=== PATIENT | female | born 1965 ===

== ENCOUNTER 2017-04-16 21:29 | Emergency (ER) | payer MEDICAID ==
[2017-04-16 21:36] VITALS: BP 149/87; PULSE 106; RESP 20; TEMP 97.5; O2SAT 98
--- NOTE | 2017-04-16 21:50 | C.PDOC ---
History Of Present Illness 51 yo female come in for evaluation of Right knee, Right hip and Right lower back pain gradually developed since today Am after sustained mechanical fall at home. Pt sts, slipped and fell down on ceramic floor, landed onto her knees. Pt admits, pain is aching, gradually worse with time and worse with ambulation. Otherwise, pt denies head injury, LOC, syncope, headache, dizziness, visual changes, neck pain, CP, SOB, dyspnea, diaphoresis, palpitation, abd. pain, N/V, saddle anesthesia, incontinence, denies obvious deformity to Right leg, denies weakness, sensory or vascular deficits to B/L LEs. Ambulate to Ed for evaluation , not in any apparent distress. Time Seen by Provider: 04/16/17 21:42 Chief Complaint (Nursing): Back Pain History Per: Patient Past Medical History Reviewed: Historical Data, Nursing Documentation, Vital Signs Vital Signs: Last Vital Signs Temp 97.5 F L 04/16/17 21:34 Pulse 106 H 04/16/17 21:34 Resp 20 04/16/17 21:34 BP 149/87 04/16/17 21:34 Pulse Ox 98 04/16/17 22:06 Family History: States: No Known Family Hx - Social History Hx Tobacco Use: No Hx Alcohol Use: No Hx Substance Use: No Review Of Systems Except As Marked, All Systems Reviewed And Found Negative. Constitutional: Negative for: Fever, Chills Eyes: Negative for: Vision Change ENT: Negative for: Ear Discharge, Nose Discharge Cardiovascular: Negative for: Chest Pain, Palpitations, Orthopnea Respiratory: Negative for: Cough Gastrointestinal: Negative for: Nausea, Vomiting, Abdominal Pain Genitourinary: Negative for: Incontinence Musculoskeletal: Positive for: Back Pain, Leg Pain (right) Skin: Negative for: Bruising Neurological: Negative for: Weakness, Numbness, Altered Mental Status, Dizziness Physical Exam - Physical Exam Appears: Well, Non-toxic, No Acute Distress Skin: Normal Color, Warm, Dry Head: Atraumatic, Normacephalic Eye(s): bilateral: PERRL Ear(s): Bilateral: Normal Nose: No Deformity Oral Mucosa: Moist Throat: No Drooling Neck: No Midline Cervical Tenderness, No Paracervical Tenderness, No Step Off Deformity, Supple Chest: Symmetrical, No Deformity Cardiovascular: Rhythm Regular Respiratory: No Decreased Breath Sounds, No Accessory Muscle Use, No Stridor Gastrointestinal/Abdominal: Soft, No Tenderness Back: No Vertebral Tenderness, Paraspinal Tenderness (Right lumbar, no ecchymoses, no midline tenderness, no palpable defomrity.) Extremity: Normal ROM (RLE), Tenderness (mild over Right patella with punctate echymoses), No Deformity, No Swelling Neurological/Psych: Oriented x3, Normal Speech, Normal Motor, Normal Sensation, Normal Reflexes ED Course And Treatment O2 Sat by Pulse Oximetry: 98 Pulse Ox Interpretation: Normal - Other Rad rIGHT KNEE X-Ray: Interpreted by Me, Viewed By Me Interpretation: (-) ACUTE FX OR DISLOCATION RIGHT HIP/PELVIS X-Ray: Interpreted by Me, Viewed By Me Interpretation: (-) ACUTE FX OR DISLOCATION Progress Note: On re-evaluation, pt is afebrile, hemodynamicaly stable. non- toxic. Ambulatory in ED with stable gait. head: AT/NC. neck: Supple, (-) midline tenderness. Lungs: CTA B/L, BS equal B/L. Abd: benign. Neurologicaly intact. Xray of Right knee, pelvis/Right hip review and appears normal, (-) acute fx or dislocation. Rafael wrap applied to Right knee. Pt has clinical findings c/w Right knee and Right hip contusion, Right back strain s/p mechanical fall. pt advised. ref. to f/u with PMD, Ortho in 2-3 days for re- eval. return to ED if any worsening or new changes. Disposition Counseled Patient/Family Regarding: Studies Performed, Diagnosis, Need For Followup - Disposition Referrals: [facility] [Outside] Mario German MD [Staff Provider] - Disposition: HOME/ ROUTINE Disposition Time: 21:58 Condition: STABLE Additional Instructions: AVOID HEAVY LIFTING, BENDING, ETC. RAFAEL WRAP TO RIGHT KNEE, AVOID PROLONG WALKING RICE-REST, ICE, COMPRESSION, ELEVATION OF RIGHT LEG TAKE PAIN MEDICATION PRESCRIBED FOLLOW UP WITH PMD, ORTHO IN 2-3 DAYS FOR RE-EVALUATION. RETURN TO ED IF ANY WORSENING OR NEW CHANGES. Prescriptions: Ibuprofen [Motrin Tab] 600 mg PO Q6 #14 tab Methocarbamol [Robaxin] 500 mg PO TID #14 tab Instructions: Knee Sprain (ED), Hip Sprain (ED), Back Pain (ED) Forms: [facility] (Azeri) Print Language: CONGOLESE - Clinical Impression Clinical Impression: Low back strain, Knee contusion, Contusion, hip
--- NOTE | 2017-04-17 07:29 | RAD ---
Right knee three views History: Injury. Comparison: None available. Findings: Mild medial compartment joint space narrowing of the femorotibial joint space. Mild patellofemoral compartment joint space narrowing. No significant suprapatellar joint effusion. No evidence for acute displaced fracture or dislocation. Impression: Mild degenerative changes. If pain persists, consider MRI.
--- NOTE | 2017-04-17 07:30 | RAD ---
Pelvis and right hip two views History: Injury. Comparison: None available. Findings: No evidence of acute displaced fracture or dislocation. Mild osteitis pubis. Mild degenerative changes of the bilateral hip joints. Mild degenerative changes in the lower lumbar spine. Calcified phleboliths in the pelvis. Impression: Mild degenerative changes. If pain persists, consider MRI.
== END 2017-04-16 22:34 | disposition home or self-care (01) ==
LOC: C.ER 21:29
DX: S39.012A Strain of muscle, fascia and tendon of lower back, initial encounter (principal); S80.01XA Contusion of right knee, initial encounter; S70.01XA Contusion of right hip, initial encounter; W01.0XXA Fall on same level from slipping, tripping and stumbling without subsequent striking against object, initial encounter